=== PATIENT | male | born 1955 | race Caucasian/White ===

== ENCOUNTER → 2016-06-22 | Outpatient (CLI) | payer BC | LOC: RADMRIMAIN 05:58 | PROVIDERS: ATTEND Psychiatry & Neurology Pain Medicine | DX: Z53.9 Procedure and treatment not carried out, unspecified reason (principal) ==

== ENCOUNTER → 2017-09-30 | Outpatient (CLI) | payer BC ==
--- NOTE | 2017-09-30 20:57 | ECHOS ---
STRESS ECHOCARDIOGRAM INDICATIONS: Dizzy. MEDICATIONS: BASELINE HEART RATE: 57 BASELINE BLOOD PRESSURE: 140/99 MAXIMUM HEART RATE: 130 MAXIMUM BLOOD PRESSURE: 157/90 85% MPHR: 135 100% MPHR: 159 METS: 7.3 MAXIMUM STAGE REACHED: II TOTAL EXERCISE TIME: 6:09 CLINICAL INFORMATION: History of dizzy spells. Baseline heart rate 57 beats per minute. Baseline blood pressure 140/99 mmHg. Baseline 12-lead ECG shows sinus rhythm with a mildly prolonged ND interval and a right bundle branch block pattern with a wide QRS. Patient exercised on a Gareth protocol for 6 minutes 9 seconds, achieving a peak heart rate of 130 beats per minute . He started experiencing chest pain. Peak blood pressure was 157/90 mmHg. At baseline, 2D echo images showed normal LV size and systolic function without segmental wall motion abnormalities. At peak exercise there was excellent augmentation of overall LV contractility without development of any wall motion abnormalities. At recovery, regional global LV systolic function remained normal. There was no ECG evidence for ischemia or arrhythmias. IMPRESSION: Low-average exercise capacity. No ECG or echocardiographic evidence for ischemia. Underlying right bundle branch block pattern. Baseline blood pressure was elevated. MMODL / IJN: [id number] /
== END | disposition home or self-care (01) ==
LOC: RADNMMAIN 10:00
PROVIDERS: ATTEND Family Medicine
DX: I45.10 Unspecified right bundle-branch block (principal); R03.0 Elevated blood-pressure reading, without diagnosis of hypertension
CPT/HCPCS: 93351; Q9950